=== PATIENT | male | born 1945 | race Caucasian/White ===

== ENCOUNTER 2020-06-03 08:21 | Outpatient (CLI) | payer MEDICARE, OTHER ==
[2020-06-03 14:10] LABS: Hemoglobin 14.3 g/dL (14.0-18.0); Mean Corpuscular HGB CONC 33.1 g/dL (32.0-36.0); Mean Corpuscular Hemoglobin 30.7 pg (27.0-31.0); Mean Corpuscular Volume 92.7 fL (78.0-98.0); Platelet Count 240 thou/uL (130-400); RBC Distribution Width 12.2 % (11.5-14.5); Red Blood Cell (RBC) Count 4.66 mill/uL (4.70-6.10); White Blood Cell (WBC) Count 6.7 thou/uL (4.8-10.8)
[2020-06-03 14:23] LABS: Anion Gap 11 mmol/L (10-20); BUN (Urea Nitrogen) 16 mg/dL (8.4-25.7); Calc. Creatinine Clearance 0 mL/min (70-130); Calcium 9.4 mg/dL (7.8-10.44); Carbon Dioxide 27 mmol/L (23-31); Chloride 102 mmol/L (98-107); Estimated GFR-MDRD 74; Glucose 91 mg/dL (83-110); Potassium 4.2 mmol/L (3.5-5.1); Sodium 136 mmol/L (136-145)
[2020-06-04 12:23] LABS: SARS-CoV-2 MS2 Positive; SARS-CoV-2 N Gene Negative; SARS-CoV-2 S Gene Negative; SARS-CoV-2 by NAA Not Detected (NotDetected); SARS-CoV-2 orf1ab Negative
== END 2020-06-03 08:22 | disposition home or self-care (01) ==
LOC: LABBT 08:21
PROVIDERS: ATTEND Urology
DX: Z01.812 Encounter for preprocedural laboratory examination (principal); Z11.59 Encounter for screening for other viral diseases; N20.0 Calculus of kidney
CPT/HCPCS: 80048; 85027; U0003; 87635

== ENCOUNTER 2020-06-07 09:58 | Day surgery (SDC) | payer MEDICARE ==
[2020-06-02 10:10] VITALS: BMI 23.6
[2020-06-07] MEDS ORDERED: Ondansetron PF 4 MG/2 ML Vial ONE (10:55)
[2020-06-07] MEDS ORDERED: Lidocaine 1% PF 5 ML VIAL ONE (10:55)
[2020-06-07] MEDS ORDERED: PROPOFOL 200 MG/20 ML VIAL ONE (10:55)
[2020-06-07] MEDS ORDERED: Levofloxacin 500 mg/D5W 100 ml Premix Bag ONE (11:15)
[2020-06-07] MEDS ORDERED: Iothalamate Meglumine 60% 50 ML VIAL FS ONE (11:50)
[2020-06-07] MEDS ORDERED: Midazolam HCl 2 mg/2 ml Vial ONE (11:57)
[2020-06-07] MEDS ORDERED: Fentanyl 100 MCG/2 ML VIAL ONE (11:57)
[2020-06-07] MEDS ORDERED: Phenazopyridine HCl 97.5 MG TABLET ONE (13:20)
--- NOTE | 2020-06-07 13:34 | OP ---
DATE OF PROCEDURE: 06/07/2020 PREOPERATIVE DIAGNOSIS: Left renal stone. POSTOPERATIVE DIAGNOSIS: Left renal stone. PROCEDURES PERFORMED: Left ureteroscopy with laser lithotripsy and 6 x 26 double-J ureteral stent placement, retrograde pyelogram with intraoperative interpretation. ANESTHESIA: General. COMPLICATIONS: None. SPECIMEN: None. FINDINGS: Massive median lobe of prostate occupying the entirety of the prostatic fossa, large left renal pelvis stone, small left calyceal stone. DESCRIPTION OF PROCEDURE: After informed consent, the patient was taken to the operating room, transferred to the table on his own power. Anesthesia was established. A time-out was performed, showing the correct patient, site, and procedure. Preoperative antibiotics were administered. He was prepped and draped in the lithotomy position. I began by inserting the rigid cystoscope through the urethra noting normal course and caliber of the urethra into the prostate noting a massive median lobe occupying the entirety of the prostatic fossa. This made identification of the ureteral orifice very difficult. I was eventually able to identify the left ureter and passed a wire into this up to the level of the renal pelvis under fluoroscopic guidance. I then passed an access sheath over this into the proximal ureter and performed retrograde pyelogram through the access sheath showing good filling of the renal pelvis. The flexible ureteroscope was passed through the access sheath into the renal pelvis, where the large stone was quickly identified. I was also able to identify the smaller 3 mm stone in a mid pole calyx. The 200 micron laser fiber was used to dust both stones into minute fragments, none larger than 1 mm in size. The collecting system was then systematically examined noting no clinically significant stone fragments remaining. The scope was then withdrawn leaving a wire in place. The access sheath also withdrawn. I then reinserted the cystoscope over the wire and used this to place a 6 x 26 double-J ureteral stent with a curl in the kidney and curl in the bladder under fluoroscopic guidance and direct visualization respectively. The bladder was then drained. The patient was awoken from anesthesia, transferred back to his hospital bed and taken to PACU in stable condition, where he was discharged home upon recovery. Job ID: [id number]
[2020-06-07] MEDS ORDERED: HYDROcodone/Acetaminophen 5/325 mg Tablet ONE ×2 (14:03→14:32)
--- NOTE | 2020-06-07 14:07 | RAD ---
RETROGRADE PYELOGRAM: Date: 06/07/2020 Six fluoroscopic images presented from the OR. INDICATION: Intraoperative during retrograde procedure. FINDINGS/IMPRESSION: These images show wire inserted into the left ureter. Opacification of left upper collecting structur es. Final image shows placement of a left ureteral stent. POS: AH
[2020-06-07] MEDS ORDERED: Ibuprofen 600 MG TAB PO SCH (15:15)
[2020-06-07] MEDS ORDERED: Oxybutynin 5 MG TAB ONE (16:03)
[2020-06-07] MEDS ORDERED: Promethazine HCl 25 MG/ML VIAL ONE (16:08)
== END 2020-06-07 17:05 | disposition home or self-care (01) ==
LOC: SDC 09:58
PROVIDERS: ATTEND Urology
PROC: 0TC48ZZ Extirpation of Matter from Left Kidney Pelvis, Via Natural or Artificial Opening Endoscopic (ICD-10-PCS; principal; 2020-06-07)
PROC: 0T778DZ Dilation of Left Ureter with Intraluminal Device, Via Natural or Artificial Opening Endoscopic (ICD-10-PCS; 2020-06-07)
DX: N20.0 Calculus of kidney (principal); N40.0 Benign prostatic hyperplasia without lower urinary tract symptoms; K21.9 Gastro-esophageal reflux disease without esophagitis; M19.90 Unspecified osteoarthritis, unspecified site; I10 Essential (primary) hypertension; Z79.82 Long term (current) use of aspirin; Z79.899 Other long term (current) drug therapy
CPT/HCPCS: 74420; J1956; J2250; J2405; J2550; J2704; J3010

== ENCOUNTER 2020-08-04 19:00 | Outpatient (CLI) | payer MEDICARE | END 2020-08-04 19:01 | disposition home or self-care (01) | LOC: SLEEPLAB 19:00 | PROVIDERS: ATTEND Family Medicine | DX: G47.33 Obstructive sleep apnea (adult) (pediatric) (principal); G47.10 Hypersomnia, unspecified; R06.83 Snoring; E66.9 Obesity, unspecified; Z68.24 Body mass index [BMI] 24.0-24.9, adult | CPT/HCPCS: 95811 ==

== ENCOUNTER 2021-07-28 09:07 | Outpatient (CLI) | payer MEDICARE | END 2021-07-28 09:08 | disposition home or self-care (01) | LOC: BICRAD 09:07 | PROVIDERS: ATTEND Urology | DX: R97.20 Elevated prostate specific antigen [PSA] (principal) | CPT/HCPCS: 36415; 74018; 84153 ==

== ENCOUNTER 2023-02-08 10:51 | Outpatient (CLI) | payer MEDICARE | END 2023-02-08 10:52 | disposition home or self-care (01) | LOC: ULT 10:51 | PROVIDERS: ATTEND Urology | DX: N40.1 Benign prostatic hyperplasia with lower urinary tract symptoms (principal); Z87.442 Personal history of urinary calculi | CPT/HCPCS: 74018; 76770 ==